=== PATIENT | male | born 1995 | race Caucasian/White ===

== ENCOUNTER 2020-04-08 08:07 | Emergency (ER) | payer OTHER ==
[2020-04-08] MEDS ORDERED: DEXAMETHASONE INJ 10 MG/ML VIAL IM ONE (08:23)
[2020-04-08] MEDS ORDERED: HYDROcodone 10MG/APAP 325MG 1 EA TAB PO ONE (08:24)
--- NOTE | 2020-04-08 08:26 | ED.PDOC ---
History of Present Illness - General Chief Complaint: ENT Problem Stated Complaint: sore throat Time Seen by Provider: 04/08/20 08:23 Additional Information: Patient is a 25-year-old male who presents the ED with chief complaint of sore throat. Patient indicates he has had a sore throat for the past 3 to 4 days, slowly worsening. Patient is able to eat and drink but with discomfort. He denies nausea, fever, chills, chest pain, shortness of breath, abdominal pain. Patient indicates that he has a history of frequent strep throat infections. Patient is a non-smoker and has no other medical complaints. - History of Present Illness Allergies/Adverse Reactions: Allergies NO KNOWN ALLERGY Allergy (Verified 04/08/20 08:21) Home Medications: Ambulatory Orders Acetaminophen W/ Codeine [Tylenol W/ CODEINE #3] 1 ea PO Q6H PRN #20 04/08/20 Amoxicillin 500 mg PO TID #21 tab 04/08/20 Fexofenadine HCl [Nara Allergy] 180 mg PO DAILY 04/08/20 Ibuprofen 800 mg PO Q8H PRN #20 tab 04/08/20 Review of Systems - Review of Systems Constitutional: States: no symptoms reported. Denies: chills, fever EENTM: States: see HPI Respiratory: States: no symptoms reported. Denies: cough, short of breath, wheezing Cardiology: States: no symptoms reported. Denies: chest pain, palpitations Gastrointestinal/Abdominal: States: no symptoms reported. Denies: abdominal pain, nausea, vomiting Musculoskeletal: States: no symptoms reported. Denies: muscle pain All other Systems: Reviewed and Negative Past Medical History (General) - Patient Medical History Hx Stroke: No Hx Congestive Heart Failure: No Hx Diabetes: No - Vaccination History Hx Influenza Vaccination: No - Social History Hx Tobacco Use: No Family Medical History - Family History Father Family History: Unknown Living Status: Unknown Physical Exam - Physical Exam General Appearance: Alert, Comfortable, No apparent distress, Well Developed, Well Nourished Nasal Exam: normal inspection Throat Exam: other - Mild pharyngeal erythema. Normal voice. Negative tonsillar exudate. Neck: non-tender, full range of motion, supple, normal inspection, trachea midline, other - Mild bilateral anterior cervical lymphadenopathy. Cardiovascular/Respiratory: regular rate, rhythm, no M/R/G, normal peripheral pulses, no JVD, normal breath sounds Neurologic: grinder brake lining II-XII nml as tested, no motor/sensory deficits, alert, normal mood/affect, oriented x 3 Skin Exam: normal color, warm/dry Progress - Progress Progress: 04/08/20 08:27 Patient with a history of strep throat who presents today with symptoms suggestive of strep throat. We will treat empirically with amoxicillin and patient will follow-up with his PCP as needed. There is no concern of airway compromise today. Vital signs stable, patient is NAD and looks clinically well and I believe is safe for discharge with outpatient follow-up. Follow-up instructions, discharge instructions and return to ED precautions discussed with patient. Patient voices understanding and willingness to comply with instructions. Patient is happy with plan. Departure - Departure Clinical Impression: Pharyngitis Qualifiers: Pharyngitis/tonsillitis etiology: unspecified etiology Qualified Code(s): J02.9 - Acute pharyngitis, unspecified Time of Disposition: 08:28 Disposition: Discharge to Home or Self Care Condition: Good Departure Forms: ED Discharge - Pt. Copy, Patient Portal Self Enrollment Instructions: DI for Ear Pain-Adult, Sore Throat, Adult (DC) Referrals: MIRIAM DIAZ MD [Active Staff] - 1 Week Prescriptions: Amoxicillin 500 mg PO TID #21 tab Ibuprofen 800 mg PO Q8H PRN #20 tab PRN Reason: Pain Acetaminophen W/ Codeine [Tylenol W/ CODEINE #3] 1 ea PO Q6H PRN #20 PRN Reason: Pain Home Medications: Ambulatory Orders Acetaminophen W/ Codeine [Tylenol W/ CODEINE #3] 1 ea PO Q6H PRN #20 04/08/20 Amoxicillin 500 mg PO TID #21 tab 04/08/20 Fexofenadine HCl [Nara Allergy] 180 mg PO DAILY 04/08/20 Ibuprofen 800 mg PO Q8H PRN #20 tab 04/08/20
[2020-04-08 08:28] VITALS: BP 137/75; TEMP 98.4; O2SAT 99
== END 2020-04-08 08:44 | disposition home or self-care (01) ==
LOC: ER 08:07
DX: J02.9 Acute pharyngitis, unspecified (principal)